=== PATIENT | male | born 2000 | race Caucasian/White ===

== ENCOUNTER 2019-04-18 01:17 | Emergency (ER) | payer SELFPAY ==
[~2019-04-18] VITALS: Ht 175.3 cm; Wt 68.0 kg
[2019-04-18 01:30] VITALS: BP_SYST 138
[2019-04-18 02:27] LABS: BARBITURATE, URINE NEGATIVE (NEG <=200); BENZODIAZEPINE, URINE NEGATIVE (NEG <=150); CANNABINOID, URINE NEGATIVE (NEG <=50); COCAINE, URINE NEGATIVE (NEG <=150); METHAMPHETAMINES SCREEN,URINE NEGATIVE (NEG <=500); OPIATE, URINE NEGATIVE (NEG <=100); PHENCYCLIDINE SCREEN,URINE NEGATIVE (NEG <=25); UR TRICYCLIC ANTIDEPRESSANTS NEGATIVE (NEG <=300); URINE AMPHETAMINE NEGATIVE (NEG <=500); URINE METHADONE NEGATIVE (NEG <=200); URINE OXYCODONE SCREEN NEGATIVE (NEG <=100); URINE PROPOXYPHENE SCREEN NEGATIVE (NEG <=300)
[2019-04-18 03:25] VITALS: BP_SYST 138
== END 2019-04-18 03:25 | disposition home or self-care (01) ==
LOC: SED 01:17
DX: T39.311A Poisoning by propionic acid derivatives, accidental (unintentional), initial encounter (principal); F10.129 Alcohol abuse with intoxication, unspecified; Y90.9 Presence of alcohol in blood, level not specified; Y92.89 Other specified places as the place of occurrence of the external cause
CPT/HCPCS: 80307; 99283